=== PATIENT | male | born 1975 ===

== ENCOUNTER 2024-05-30 19:53 | Emergency (ER) | payer OTHER ==
[~2024-05-30] VITALS: Ht 167.6 cm; Wt 59.0 kg
[2024-05-30 20:05] VITALS: TEMP 98.6
[2024-05-30] MEDS: HYDROCODONE/ACETAMINOPHEN 5-325 MG TABLET PO ONE (20:53)
[2024-05-30] MEDS: PERTUSS(ACELL),DIPH,TET/PF 0.5 ML SYRINGE [ADULT] IM. ONE (20:53)
[2024-05-30 22:23] VITALS: BP 110/72; PULSE 65; RESP 14
[2024-05-30] MEDS: CefTRIAXone SODIUM 1 GM/VIAL IM ONE (22:36)
[2024-05-30] MEDS: LIDOCAINE/PF 1% 2 ML VIAL IM ONE (22:36)
[2024-05-30] MEDS ORDERED: TRAM50TA5 PO (22:53)
[2024-05-30] MEDS ORDERED: SULF-261 PO (22:53)
[2024-05-30] MEDS ORDERED: CEPH-558 PO (22:53)
== END 2024-05-30 23:02 | disposition home or self-care (01) ==
LOC: EMS 19:58
DX: S61.431A Puncture wound without foreign body of right hand, initial encounter (principal); F17.210 Nicotine dependence, cigarettes, uncomplicated; F12.90 Cannabis use, unspecified, uncomplicated; X58.XXXA Exposure to other specified factors, initial encounter; Y93.89 Activity, other specified; Y92.89 Other specified places as the place of occurrence of the external cause; Y99.8 Other external cause status
CPT/HCPCS: 99284; 73130; 90715; 90471; 96372; J0696; J3490